=== PATIENT | female | born 2005 | race Caucasian/White ===

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

== ENCOUNTER 2023-05-06 17:34 | Emergency (ER) | payer MEDICAID, OTHER ==
[~2023-05-06] VITALS: Ht 152.4 cm; Wt 54.5 kg
[~2023-05-06 17:34] MED LIST changes: +ESCI10 PO; -antibiotics PO
[2023-05-06 17:38] VITALS: BP 124/68; PULSE 90; RESP 16; TEMP 98.4
== END 2023-05-06 19:14 | disposition left against medical advice (07) ==
LOC: EMS 17:36
DX: R11.10 Vomiting, unspecified (principal); Z53.21 Procedure and treatment not carried out due to patient leaving prior to being seen by health care provider
CPT/HCPCS: 99281; Z7502